=== PATIENT | male | born 1955 | race Caucasian/White ===

== ENCOUNTER → 2016-08-12 | Outpatient (CLI) | payer MEDICARE ==
[~2016-08-12] MED LIST: CALCIUM 500500 M2 PO; CIPRO 500MG TA500 MG PO; FISH OIL 1000MG1 CAP PO; LIORESAL20 MG PO; MULTIPLE VITAMI1 CAP PO; NAPROSYN500 MG PO; NORCO 325 MG-51 TAB PO; PRILOTC; PROLOPRIM100 MG PO; SEE INSTRUCTIONS IT; VALIUM 2MG T2 MG/TAB PO; VITAMINC1000TA
== END ==
LOC: COL.RAD 08-01 10:30
DX: N39.43 Post-void dribbling (principal)

== ENCOUNTER 2016-09-25 05:36 | Day surgery (SDC) | payer MEDICARE ==
[~2016-09-25] VITALS: Ht 177.8 cm; Wt 86.4 kg
[~2016-09-25 05:36] MED LIST changes: -CIPRO 500MG TA500 MG PO; -FISH OIL 1000MG1 CAP PO
[2016-09-25 06:20] LABS: BASO # 0.1 (0.0-0.2); BASO % 1.1 % (0.0-2.0); EOS # 0.6 (0.0-0.7); EOS % 7.4 % (0-4.0); GRAN # 4.4 (1.4-6.5); GRAN % 57.5 % (42.2-75.2); HEMATOCRIT 41.6 % (42.0-52.0); LYMPH # 1.6 (1.2-3.4); LYMPH % 21.1 % (20.0-51.0); MEAN CELL VOLUME 86 fl (80.0-100.0); MEAN CORPUSCULAR HEMOGLOBIN 29 pg (27.0-31.0); MEAN CORPUSCULAR HGB CONC 34 g/dl (33.0-37.0); MEAN PLATELET VOLUME 10.4 fl (7.4-10.4); MONO % 12.6 % (1.7-9.3); PLATELET COUNT 207 K/mm3 (130-400); RED BLOOD COUNT 4.83 M/mm3 (4.20-5.60); REDCELL DISTRIBUTION WIDTH-CV 12.2 % (11.5-14.5); WHITE BLOOD COUNT 7.6 K/mm3 (4.8-10.8)
[2016-09-25 06:22] VITALS: BP 134/85; PULSE 66; TEMP 97.2
[2016-09-25] MEDS ORDERED: FISH OIL 1000MG1 CAP PO (06:58)
[2016-09-25] MEDS ORDERED: CIPRO 500MG TA500 MG PO (06:58)
[2016-09-25 07:36] VITALS: BP 141/77; PULSE 65
[2016-09-25 07:51] VITALS: BP 130/76; PULSE 62
[2016-09-25 08:06] VITALS: BP 150/76; PULSE 85
== END 2016-09-25 08:30 | disposition home or self-care (01) ==
LOC: SDCO 05:36
PROVIDERS: Urology
DX: N31.9 Neuromuscular dysfunction of bladder, unspecified (principal); N30.90 Cystitis, unspecified without hematuria; K21.9 Gastro-esophageal reflux disease without esophagitis; Z87.891 Personal history of nicotine dependence; Z97.8 Presence of other specified devices
CPT/HCPCS: J0690; J3010

== ENCOUNTER → 2017-01-15 | Outpatient (CLI) | payer MEDICARE ==
[~2017-01-15] MED LIST changes: +CIPRO 500MG TA500 MG PO; +FISH OIL 1000MG1 CAP PO
== END ==
LOC: ZCOL.LAB 13:45
DX: T85.79XA Infection and inflammatory reaction due to other internal prosthetic devices, implants and grafts, initial encounter (principal)